=== PATIENT | female | born 1980 | race Caucasian/White ===

== ENCOUNTER 2016-05-16 15:30 | Emergency (ER) | payer BC ==
[~2016-05-16] VITALS: Ht 170.2 cm; Wt 61.2 kg
[2016-05-16] MEDS ORDERED: ALBU8.5H2 INH (15:57)
[2016-05-16] MEDS ORDERED: KETOROLAC TROMETHAMINE 15 MG/ML VIAL ONE (16:28)
[2016-05-16] MEDS ORDERED: KETOROLAC TROMETHAMINE INJ 30 MG/ML VIAL IM ONE (16:30)
[2016-05-16] MEDS ORDERED: IPRATROPIUM NEB FS 0.5 MG/2.5 ML AMPUL.NEB NEB ONE (16:30)
[2016-05-16] MEDS ORDERED: ALBUTEROL FS 2.5 MG/3 ML VIAL.NEB NEB ONE (16:30)
[2016-05-16] MEDS ORDERED: ALBUTEROL FS 2.5 MG/3 ML VIAL.NEB ONE (16:42)
[2016-05-16] MEDS ORDERED: IPRATROPIUM NEB FS 0.5 MG/2.5 ML AMPUL.NEB ONE (16:42)
[2016-05-16 17:53] VITALS: BP 102/54
== END 2016-05-16 17:54 | disposition home or self-care (01) ==
LOC: ER 15:36
DX: M62.830 Muscle spasm of back (principal); J45.909 Unspecified asthma, uncomplicated; V43.52XA Car driver injured in collision with other type car in traffic accident, initial encounter; Y93.89 Activity, other specified; Y92.488 Other paved roadways as the place of occurrence of the external cause; Y99.8 Other external cause status
CPT/HCPCS: 96372; 99283; A4606; J1885; Z7610